=== PATIENT | male | born 1970 | race Caucasian/White ===

== ENCOUNTER 2018-09-23 21:14 | Emergency (ER) | payer SELFPAY ==
[~2018-09-23] VITALS: Ht 172.7 cm; Wt 75.0 kg
[~2018-09-23 21:14] MED LIST: BLOOD GLUCOSE TEST S SC; GLIPIZIDE5 M2 PO; LANCETS 30G30 G SC; LISINOPRIL2.5 MG PO; METFORMIN500 MG PO; MONITOR SC; NAPROXEN500 MG PO
[2018-09-23] MEDS ORDERED: GLIPIZIDE5 M2 PO (21:36)
[2018-09-23] MEDS ORDERED: METFORMIN500 M1 PO (21:36)
[2018-09-23] MEDS ORDERED: ZESTRIL/PRINIV2.5 MG PO (21:37)
[2018-09-23 21:48] LABS: HEMATOCRIT 41.2 % (39.0-50.0); HEMOGLOBIN 14.8 g/dl (14.0-18.0); IMMATURE GRANULOCYTES 0.5 % (0.0-5.0); MEAN CORPUSCULAR HGB 32.3 pG CALC (26.0-32.0); MEAN CORPUSCULAR HGB CONC 35.9 g/L CALC (32.0-36.0); NEUT# 6.67 thou/uL (1.82-7.42); RED BLOOD COUNT 4.58 mill/uL (4.70-6.10); RED CELL DISTRI WIDTH 11.6 % (11.5-15.5)
[2018-09-23 22:00] LABS: ANION GAP 18 (6-22 (CALC)); BUN 15 mg/dL (9-20); BUN/CREATININE RATIO 20 (12-20 (CALC)); CARBON DIOXIDE 25 mmol/l (22-30); CHLORIDE 95 mmol/l (95-108); CREATININE 0.7 mg/dL (0.7-1.3); GFR > 60 ML/MIN (>=60 (CALC)); GFR FOR AFR.AMER. > 60 ML/MIN (>=60 (CALC)); POTASSIUM 4.2 mmol/l (3.5-5.1); SODIUM 134 mmol/l (137-146)
[2018-09-23] MEDS ORDERED: CIPROFLOXACN500 MG PO (23:19)
[2018-09-23] MEDS ORDERED: BACTRIM DS1 TAB PO (23:19)
[2018-09-23 23:31] VITALS: BP 123/76
== END 2018-09-23 23:31 | disposition home or self-care (01) | DRG 541 ==
LOC: ED 21:14
PROVIDERS: Family Medicine
DX: M86.641 Other chronic osteomyelitis, right hand (principal); E11.69 Type 2 diabetes mellitus with other specified complication; F17.290 Nicotine dependence, other tobacco product, uncomplicated; T38.3X6A Underdosing of insulin and oral hypoglycemic [antidiabetic] drugs, initial encounter; Z91.128 Patient's intentional underdosing of medication regimen for other reason